=== PATIENT | male | born 1990 | race Caucasian/White ===

== ENCOUNTER 2017-07-10 18:25 | Emergency (ER) | payer SELFPAY ==
[2017-07-10] MEDS ORDERED: Ibuprofen TAB* 600 MG PO ONE (19:00)
--- NOTE | 2017-07-10 19:37 | RAD ---
INDICATION: Left knee injury. TECHNIQUE: 4 views of the left knee were obtained. FINDINGS: The bones are in normal alignment. No joint effusion or fracture is seen. Joint spaces appear maintained. IMPRESSION: NO EVIDENCE FOR FRACTURE.
[2017-07-10 20:15] VITALS: BP 132/76
--- NOTE | 2017-07-10 20:46 | ED ---
Luis Morfin Nikita, scribed for Bob Leiva MD on 07/10/17 at 1901 . Lower Extremity - HPI Summary HPI Summary: Pt is a 27 y/o M who presents to ED c/o L knee pain. 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 Pain is on the top of the knee and radiates towards the medial surface. Associated pain is currently severe, ranked 7/10 and characterized as sharp. Applied a splint [employer]. Sx aggravated by bending and straightening, alleviated by nothing. Additionally c/ o tingling that radiates down the LLE. - History of Current Complaint Chief Complaint: EDExtremityLower Stated Complaint: LT KNEE INJURY Time Seen by Provider: 07/10/17 18:50 Hx Obtained From: Patient Mechanism Of Injury: Twisted Onset of Pain: Prior to Arrival - At 1330 Onset/Duration: Still Present Severity Currently: Severe Pain Intensity: 7 Pain Scale Used: 0-10 Numeric Location: Radiates To - On the top of the L knee with radiation towards the medial surface Character Of Pain: Sharp Associated Signs And Symptoms: Positive: Other - Tingling down the LLE Aggravating Factor(s): Movement - Bending and straightening Alleviating Factor(s): Nothing Related History: Occupational Injury - Allergies/Home Medications Allergies/Adverse Reactions: Allergies Allergy/AdvReac Type Severity Reaction Status Date / Time Bee Venom Allergy Rash Verified 07/10/17 18:28 PMH/Surg Hx/FS Hx/Imm Hx Endocrine/Hematology History: Denies: Hx Diabetes Cardiovascular History: Denies: Hx Coronary Artery Disease, Hx Hypertension Infectious Disease History: No Infectious Disease History: Denies: Traveled Outside the [place] in Last 30 Days - Family History Known Family History: Positive: Cardiac Disease, Hypertension, Diabetes - Social History Alcohol Use: Occasionally - On weekends Hx Substance Use: No Hx Tobacco Use: No Review of Systems Negative: Fever Positive: Arthralgia - L knee pain, Other - Tingling from the L knee and down the LLE All Other Systems Reviewed And Are Negative: Yes Physical Exam Triage Information Reviewed: Yes Vital Signs On Initial Exam: Initial Vitals Temp Pulse Resp BP Pulse Ox 98.1 F 84 16 148/95 96 07/10/17 18:29 07/10/17 18:29 07/10/17 18:29 07/10/17 18:29 07/10/17 18:29 Vital Signs Reviewed: Yes Appearance: Positive: Well-Appearing Skin: Positive: Warm, Skin Color Reflects Adequate Perfusion, Dry Head/Face: Positive: Normal Head/Face Inspection Eyes: Positive: Normal ENT: Positive: Normal ENT inspection Neck: Positive: Supple, Nontender Respiratory/Lung Sounds: Positive: Clear to Auscultation, Breath Sounds Present Cardiovascular: Positive: RRR Abdomen Description: Positive: Nontender, Soft Bowel Sounds: Positive: Present Musculoskeletal: Positive: Other - His L knee is tendern to palpation in the patella/ Pain with flexion of the knee and with any ROM. Neurological: Positive: Normal Psychiatric: Positive: Normal, Affect/Mood Appropriate Diagnostics - Vital Signs Vital Signs Temp Pulse Resp BP Pulse Ox 07/10/17 18:29 98.1 F 84 16 148/95 96 - Laboratory Lab Statement: Any lab studies that have been ordered have been reviewed, and results considered in the medical decision making process. - Radiology L Knee XR Xray Interpretation: No Acute Changes - NO EVIDENCE FOR FRACTURE. Radiology Interpretation Completed By: Radiologist Re-Evaluation - Re-Evaluation First Eval Re-Evaluation Time: 19:46 Change: Unchanged Comment: Pt is just about to receive shot. Discussed XR results and plan to discharge and plan to receive a knee immobilizer. Lower Extremity Course/Dx - Course Course Of Treatment: Mr. De La Fuente knee was quite tender to any ROM and was therefore immobilized after an x-ray was obtained and read as negative. He will need to be reevaluated after the inflammation has been reduced. - Diagnoses Provider Diagnoses: Knee injury Discharge - Discharge Plan Condition: Stable Disposition: HOME Patient Education Materials: Knee Immobilizer (ED), Knee Pain (ED) Referrals: Joshua Thrashre MD [Medical Doctor] - 3 Days The documentation as recorded by the Luis jernigan Nikita accurately reflects the service I personally performed and the decisions made by , Bob Leiva MD.
== END 2017-07-10 20:16 | disposition home or self-care (01) ==
LOC: ED 18:25
DX: S89.92XA Unspecified injury of left lower leg, initial encounter (principal); M25.562 Pain in left knee; X50.9XXA Other and unspecified overexertion or strenuous movements or postures, initial encounter; Y93.9 Activity, unspecified; Y92.9 Unspecified place or not applicable
CPT/HCPCS: 99282; A9270-GY

== ENCOUNTER 2017-10-12 09:57 | Day surgery (SDC) | payer OTHER ==
--- NOTE | 2017-10-09 09:52 | HP ---
HISTORY AND PHYSICAL: DATE OF HISTORY AND PHYSICAL: 10/08/17 - OR EAST DATE OF SURGERY: 10/12/17. SURGEON: Dr. Quintanilla * (DICTATED BY ZOE CORRALES) PROCEDURE: Left knee arthroscopy, possible meniscal repair. CHIEF COMPLAINT: Left knee pain. 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 He states that he felt the knee twist, but he did not let the bag go. He felt the full weight of the body as well as his own body to his knee. He was unable to weight-bear. He felt like he could not move his knee. The knee was stuck. He did go to [facility] and underwent x-rays. He was given a knee immobilizer at that time. He continues to have pain with walking, bending, and lateral movements. He has used ice, elevation, as well as keeping the leg straight. He denies any numbness or tingling. No fevers or chills. After 8 weeks, he is ambulating more comfortably but he continues to have catching and occasionally locking sensation medially in his knee. At his last appointment, we discussed the arthroscopy with possible meniscal repair surgery and he would like to proceed with this. He presented for an H and P today. He recently and was traveling to the [place] for his [employer]. PAST MEDICAL HISTORY: Negative for any chronic medical problems. PAST SURGICAL HISTORY: None. MEDICATIONS: Ibuprofen 800 mg 3 times a day as needed for pain. ALLERGIES: No known drug allergies. FAMILY HISTORY: Negative. SOCIAL HISTORY: He is a nonsmoker. He does drink some alcohol, and he denies any illicit drug use. REVIEW OF SYSTEMS: Positive for headache due to pain. He does endorse being able to walk a city block typically, but he is unable to do that currently because of knee pain. He does have some numbness and tingling currently with decreased sensation medially of his knee on occasion. Otherwise, he denies any fevers, chills, night sweats, lightheadedness, fainting, wounds, rashes, chest pain, palpitations, wheezes, cough, shortness of breath with exertion, nausea, vomiting, diarrhea, constipation, abdominal pain, dysuria, urinary frequency or kidney problems, back pain, seizures, stroke, depression, anxiety, diabetes or thyroid disease, anemia, history of DVT or PE, excessive bleeding or bruising. He does deny any MRSA, hepatitis C or HIV. PHYSICAL EXAMINATION VITAL SIGNS: Height 72 inches, weight 230 pounds, pulse 74, blood pressure 122/ 82, respirations 14, temperature 98.3, pain level 3, BMI 31.2. GENERAL: He is a well-developed, well-nourished, 27-year-old male in no acute distress. He is alert and oriented x3. He has no gross neurological defects. He is ambulating with an antalgic gait. HEENT: Normocephalic, atraumatic. Pupils equally round and reactive to light. Extraocular movements intact. NECK: Supple. He has no palpable cervical lymph nodes. Thyroid is smooth and nontender. PULMONARY: Lungs are clear to auscultation bilaterally with no wheezes, rales or rhonchi. CARDIAC: Regular rate and rhythm with no murmurs, rubs or gallops. He has no pedal edema. He has 2+ pedal pulses. ABDOMEN: Soft, nontender. MUSCULOSKELETAL: His left knee has intact skin. There is no erythema or warmth. He does have a marked effusion. He is tender on the medial joint line. His range of motion is limited to 15 to 70 degrees. He is stable to varus and valgus stress, but guarded. He does have a stable Carson's; again, he is guarded. Posterior draw was not tested. Calf is soft and nontender. He is sensitive to light touch around the first dorsal web space medial, lateral and dorsal and plantar foot. IMPRESSION: Left knee meniscal tear. PLAN: Bob is a 27-year-old male who is scheduled to undergo a left knee arthroscopy with possible meniscal repair with Dr. Quintanilla on 10/12/17. He will return to clinic 10 to 14 days postop for followup and suture removal. A prescription for Percocet was e-scribed to the patient's pharmacy of record for postoperative pain management. I-STOP was checked prior to sending his script. He will also need a new hinged brace after surgery as his hinged brace is currently well worn. ZOE CORRALES [id number]/[facility] #: [id number] NANI
[~2017-10-12 09:57] MED LIST: Buffered Lidocaine 0.9% SYRIN* 5 ML/SYR SYRINGE INTRADERM ONE; Dexamethasone IV* 4 MG/ML 1 ML (4 MG) IV SLOW PU ONE; Famotidine IV* 10 MG/ML 2 ML (20 mg) IV ONE
[2017-10-12] MEDS ORDERED: Dexamethasone IV* 4 MG/ML 1 ML (4 MG) ONE (10:25)
[2017-10-12] MEDS ORDERED: Famotidine IV* 10 MG/ML 2 ML (20 mg) ONE (10:25)
[2017-10-12] MEDS ORDERED: ceFAZolin 2 GM PREMIX (*) 2 GM/50 ML BAG IVPB ONE (10:42)
[2017-10-12] MEDS ORDERED: DiMENhydriNATE IV* 50 MG/ML VIAL IV PUSH PRN (12:45)
[2017-10-12] MEDS ORDERED: fentaNYL* 50 MCG/ML 2 ML VIAL (100 MCG VIAL) IV PRN (12:45)
[2017-10-12] MEDS ORDERED: Bupivacaine 0.25% SDV* 30 ML ONE (12:49)
[2017-10-12] MEDS ORDERED: fentaNYL* 50 MCG/ML 2 ML VIAL (100 MCG VIAL) ONE ×2 (12:50→13:46)
[2017-10-12] MEDS ORDERED: Lidocaine 1% MPF wEPI 200,000* 30 ML SDV ONE (12:50)
[2017-10-12] MEDS ORDERED: Midazolam* 1 MG/ML 2 ML VIAL (2 MG) ONE (12:51)
[2017-10-12] MEDS ORDERED: oxyCODONE/Acetamin 5/325 MG* TAB ONE (14:58)
[2017-10-12 15:04] VITALS: BP 130/53
--- NOTE | 2017-10-18 00:12 | OP ---
OPERATIVE REPORT: DATE OF OPERATION: 10/12/17 DATE OF : 89 SURGEON: Daron Quintanilla MD SPECIAL DELIVERY WORKER: ZOE Castelan ANESTHESIOLOGIST: Enrique Evans MD ANESTHESIA: General PRE-OP DIAGNOSIS: Left knee medial meniscus tear. POST-OP DIAGNOSES: Left knee medial and lateral meniscus tear with plica. OPERATIVE PROCEDURE: 1. Left knee arthroscopy with partial medial and partial lateral meniscectomy. 2. Plica excision. COMPLICATIONS: None. ESTIMATED BLOOD LOSS: Minimal. 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 He was diagnosed with an MCL sprain as well as medial meniscus tear. He also healed his MCL and had persistent mechanical symptoms medially based, catching and locking. He had an MRI that confirmed the diagnosis. After extensive discussion, risks and benefits of surgery versus nonoperative treatment, he has elected to proceed with surgical treatment. Risks were discussed which included but are not limited to bleeding, infection, damage to nerves, vessels, and surrounding structures, wound nonhealing, persistent pain, need for further surgery, scarring, stiffness, incomplete relief of symptoms, and risk of anesthesia. DESCRIPTION OF PROCEDURE: The patient was greeted in the preoperative area by the attending surgeon. Correct extremity was marked, consent was confirmed. The patient was brought back to the operating suite where he was placed in the supine position on the operating table. He then underwent general anesthesia with endotracheal intubation after which the knee was examined and found to have full range of motion with stable ligamentous exam and mild perfusion. The left leg was then prepped and draped in the usual sterile fashion beginning with chlorhexidine soap, scrub, and alcohol wipe, and final prep with ChloraPrep. After appropriate surgical pause indicating site, side, procedure, administration of antibiotics, the knee was intra-articularly injected with 1% lidocaine with epi. The lateral portal was made using an 11-blade. The scope was inserted from the joint. The patellofemoral joint had grade 0 to 1 changes. The gutters were intact without any loose debris. The notch was intact with intact ACL and PCL. The gutters were without loose body but there was evidence of a medial plica. The medial compartment was examined and there were grade 0 to 1 changes. There was an unstable tear of the medial meniscus that was full-thickness and was displaced. The scope was positioned in the figure-of-4 position and the patellofemoral compartment had grade 0 to 1 changes , a small area of fissuring of the tibial plateau. Lateral meniscus was intact with the exception of some mild fraying as well as tearing of the posterior root. Attention was then directed back to the medial compartment. Because the patient is very young, we had a discussion of trying to repair this tear as the tissue quality was good; however, he is several months from injury, a repair was attempted. First rasping the undersurface of the meniscus which demonstrated some poor quality tissue. However, a SoftSilk anchor was attempted to be passed through the medial meniscus, but this did not hold through the suture. Decision was made to just do a partial meniscectomy. The meniscus was then debrided back using biters and michelle to stable root to try to preserve much of the meniscus as possible. Once this was complete, attention was directed to the lateral compartment where there was mild amount of lateral meniscal fraying and mild fraying at the root which was debrided back using the shaver as well. At this point, the knee was placed in extension and the plica was examined. This was then debrided back using michelle as well as biters to allow for removal of the plica. The knee was thoroughly lavaged, was removed of all loose tissue. The wound was then copiously irrigated with sterile saline. The portals were closed with 3-0 nylon. Sterile dressings were applied as well as a Cryo/Cuff. He was awoken from anesthesia and transferred to PACU in stable condition. POSTOPERATIVE PLAN: He will be weightbearing as tolerated, but in crutches for 3 to 5 days. DVT prophylaxis was considered but deferred due to no previous personal or family history. He will be discharged on pain medications. I will see the patient back in 10 to 14 days. [id number]/[facility] #: [id number] NANI
== END 2017-10-12 15:29 | disposition home or self-care (01) ==
LOC: OREAST 09:57
PROVIDERS: ATTEND Orthopaedic Surgery
DX: S83.242A Other tear of medial meniscus, current injury, left knee, initial encounter (principal); S83.282A Other tear of lateral meniscus, current injury, left knee, initial encounter; M67.52 Plica syndrome, left knee; X50.0XXA Overexertion from strenuous movement or load, initial encounter; Y93.89 Activity, other specified; Y92.89 Other specified places as the place of occurrence of the external cause; Y99.0 Civilian activity done for income or pay; Z68.32 Body mass index [BMI] 32.0-32.9, adult
CPT/HCPCS: A9270-GY; J0690; J1100; J2001; J2250; J3010